=== PATIENT | female | born 1995 | race Two or more races ===

== ENCOUNTER 2021-06-20 21:16 | Emergency (ER) | payer MEDICAID ==
[~2021-06-20] VITALS: Ht 175.3 cm; Wt 156.6 kg
[2021-06-20 21:23] VITALS: BP 118/85
[2021-06-20 21:59] LABS: BASOPHILS # (AUTO) 0.1 X10'3 (0-0.2); BASOPHILS % (AUTO) 0.9 % (0-1); EOSINOPHILS # (AUTO) 0.2 X10'3 (0-0.9); EOSINOPHILS % (AUTO) 1.7 % (0-6); HEMATOCRIT 41.6 % (35.0-45.0); HEMOGLOBIN 13.6 g/dl (12.0-16.0); LYMPHOCYTES # (AUTO) 1.8 X10'3 (1.1-4.8); LYMPHOCYTES % (AUTO) 19.6 % (21-51); MEAN CORPUSCULAR HEMOGLOBIN 26.1 PG (27.0-31.0); MEAN CORPUSCULAR HGB CONC 32.7 g/dL (33.0-36.5); MEAN CORPUSCULAR VOLUME 79.8 FL (78-98); MEAN PLATELET VOLUME 9.6 FL (7.4-10.4); MONOCYTES # (AUTO) 0.6 X10'3 (0-0.9); MONOCYTES % (AUTO) 6.7 % (2-12); NEUTROPHILS # (AUTO) 6.5 X10'3 (1.8-7.7); NEUTROPHILS % (AUTO) 71.1 % (42-75); PLATELET COUNT 286 X10'3 (140-440); RED BLOOD COUNT 5.22 X10'6 (4.20-5.60); RED CELL DISTRIBUTION WIDTH 13.7 % (11.5-14.5); WHITE BLOOD COUNT 9.1 X10'3 (4.5-11.0)
[2021-06-20 22:18] LABS: ALANINE AMINOTRANSFERASE 61 U/L (12-78); ALBUMIN 3.6 G/DL (3.4-5.0); ALKALINE PHOSPHATASE 69 IU/L (46-116); ANION GAP 8 (8-16); ASPARTATE AMINO TRANSFERASE 27 U/L (10-37); BILIRUBIN,TOTAL 0.2 MG/DL (0.1-1.0); BLOOD UREA NITROGEN 8 MG/DL (7-18); BUN/CREATININE RATIO 11.1 (6.6-38.0); CHLORIDE 105 MMOL/L (99-107); CREATININE 0.72 MG/DL (0.40-0.90); GLUCOSE 102 MG/DL (70-104); LIPASE < 50 U/L (73-393); POTASSIUM 4.2 MMOL/L (3.5-5.1); SODIUM 142 MMOL/L (135-145); TOTAL CARBON DIOXIDE 28.6 MMOL/L (24-32); TOTAL PROTEIN 7.3 G/DL (6.4-8.2); eGFR > 90 ML/MIN
[2021-06-20 22:24] LABS: URINE HCG NEGATIVE (NEG)
[2021-06-20 22:28] LABS: CLARITY,URINE CLEAR (Clear); COLOR,URINE YELLOW (Yellow); GLUCOSE, URINE NEGATIVE (Neg); KETONES,URINE NEGATIVE (Neg); LEUKOCYTE ESTERASE ,URINE NEGATIVE (Neg); NITRITES, URINE NEGATIVE (Neg); OCCULT BLOOD,URINE NEGATIVE (Neg); PROTEIN,URINE NEGATIVE (Neg); UROBILINOGEN,URINE 0.2 E.U/dL (0.2-1.0)
[2021-06-20 22:31] LABS: UA COLLECTION TYPE CLN CATCH MIDSTREAM
== END 2021-06-21 01:25 | disposition left against medical advice (07) ==
LOC: ER 21:17
DX: R10.9 Unspecified abdominal pain (principal); Z53.21 Procedure and treatment not carried out due to patient leaving prior to being seen by health care provider
CPT/HCPCS: 36415; 80053; 81003; 81025; 83690; 85025

== ENCOUNTER 2021-06-25 19:30 | Emergency (ER) | payer MEDICAID ==
[~2021-06-25] VITALS: Ht 175.3 cm; Wt 154.6 kg
[2021-06-25 19:32] VITALS: BP 129/96
[2021-06-25 20:29] LABS: CLARITY,URINE CLEAR (Clear); COLOR,URINE YELLOW (Yellow); GLUCOSE, URINE NEGATIVE (Neg); KETONES,URINE 15 mg/dl (Neg); LEUKOCYTE ESTERASE ,URINE NEGATIVE (Neg); NITRITES, URINE NEGATIVE (Neg); OCCULT BLOOD,URINE NEGATIVE (Neg); PH,URINE 7.5 (4.8-8.0); PROTEIN,URINE NEGATIVE (Neg); UA COLLECTION TYPE STRAIGHT CATH; URINE HCG NEGATIVE (NEG); UROBILINOGEN,URINE 0.2 E.U/dL (0.2-1.0)
[2021-06-25] MEDS ORDERED: ketorolac trometh. 30mg/ml inj. IM ONE (20:50)
[2021-06-25] MEDS ORDERED: IBUP-1985 PO (20:58)
== END 2021-06-25 21:05 | disposition home or self-care (01) ==
LOC: ER 19:31
DX: M54.89 Other dorsalgia (principal); Z79.899 Other long term (current) drug therapy
CPT/HCPCS: 81003; 81025; 96372; 99283; J1885

== ENCOUNTER 2021-06-26 03:30 | Emergency (ER) | payer MEDICAID ==
[~2021-06-26] VITALS: Ht 175.3 cm; Wt 154.6 kg
[~2021-06-26 03:30] MED LIST: IBUP-1985 PO
[2021-06-26 03:40] VITALS: BP 136/81
== END 2021-06-26 04:03 | disposition left against medical advice (07) ==
LOC: ER 03:30
DX: M54.9 Dorsalgia, unspecified (principal); Z53.21 Procedure and treatment not carried out due to patient leaving prior to being seen by health care provider

== ENCOUNTER 2021-09-08 07:29 | Day surgery (SDC) | payer MEDICAID ==
[2021-09-06 10:06] LABS: BASOPHILS # (AUTO) 0.1 X10'3 (0-0.2); BASOPHILS % (AUTO) 1.1 % (0-1); EOSINOPHILS # (AUTO) 0.2 X10'3 (0-0.9); EOSINOPHILS % (AUTO) 2.5 % (0-6); LYMPHOCYTES # (AUTO) 1.8 X10'3 (1.1-4.8); LYMPHOCYTES % (AUTO) 21.9 % (21-51); MEAN CORPUSCULAR HEMOGLOBIN 26.2 PG (27.0-31.0); MEAN CORPUSCULAR HGB CONC 33.2 g/dL (33.0-36.5); MEAN CORPUSCULAR VOLUME 78.9 FL (78-98); MEAN PLATELET VOLUME 10.1 FL (7.4-10.4); MONOCYTES # (AUTO) 0.5 X10'3 (0-0.9); MONOCYTES % (AUTO) 6.1 % (2-12); NEUTROPHILS # (AUTO) 5.6 X10'3 (1.8-7.7); NEUTROPHILS % (AUTO) 68.4 % (42-75); PRE OP HEMATOCRIT 39.4 % (35.0-45.0); PRE OP HEMOGLOBIN 13.1 g/dL (12.0-16.0); PRE OP PLATELET COUNT 255 X10'3 (140-440); RED BLOOD COUNT 4.99 X10'6 (4.20-5.60); RED CELL DISTRIBUTION WIDTH 13.8 % (11.5-14.5)
[2021-09-06 10:18] LABS: ALBUMIN 3.4 G/DL (3.4-5.0); ALBUMIN/GLOBULIN RATIO 0.7 (1.1-1.5); ALKALINE PHOSPHATASE 57 IU/L (46-116); BLOOD UREA NITROGEN 12 MG/DL (7-18); BUN/CREATININE RATIO 18.2 (6.6-38.0); CALCIUM 8.7 MG/DL (8.5-10.1); CHLORIDE 105 MMOL/L (99-107); CREATININE 0.66 MG/DL (0.40-0.90); PRE OP ALT 45 U/L (30-65); PRE OP ANION GAP 12 (8-16); PRE OP AST 21 U/L (10-37); PRE OP BILIRUB, TOTAL 0.4 MG/DL (0.0-1.0); PRE OP GLUCOSE 107 MG/DL (70-104); PRE OP POTASSIUM 3.8 MMOL/L (3.4-5.1); PRE OP SODIUM 139 MMOL/L (135-145); TOTAL CARBON DIOXIDE 21.9 MMOL/L (24-32); TOTAL PROTEIN 8.3 G/DL (6.4-8.2); eGFR > 90 ML/MIN
[2021-09-06 10:29] LABS: HCG SERUM QL NEGATIVE
[~2021-09-08] VITALS: Ht 177.8 cm; Wt 146.6 kg
[2021-09-08] VITALS (8 sets, daily range): BP systolic 125–138; BP diastolic 72–87
[~2021-09-08 07:29] MED LIST changes: -IBUP-1985 PO; +INDOCYANINE GREEN 25 MG/10 ML VIAL IV ONE; +LEVO1TAB80 PO; +ceFAZolin inj. 3,000 MG in normal saline 100ml IV soln 100 ML IV ONE; +famotidine 20mg tablet PO ONE; +ringers solution, lacted 1,000 ML IV SCH
[2021-09-08] MEDS ORDERED: proCHLORperazine 10 MG/2 ml inj IV PRN (08:00)
[2021-09-08] MEDS ORDERED: morphine 2 MG/ML inj. syringe IV PRN (08:00)
[2021-09-08] MEDS ORDERED: ringers solution, lacted 1,000 ML IV SCH (08:00)
[2021-09-08] MEDS ORDERED: morphine 4 MG/ML inj SYRINge IV PRN (08:00)
[2021-09-08] MEDS ORDERED: meperidine/PF 25mg/ml syringe IV PRN ×3 (08:00)
[2021-09-08] MEDS ORDERED: ondansetron/PF 4mg/2ml inj IV PRN (08:00)
[2021-09-08] MEDS ORDERED: fentaNYL/PF 50MCG/1 ML 2ML syringe ONE (08:41)
[2021-09-08] MEDS ORDERED: midazolam 1 mg/ML 2ml injection ONE (08:42)
[2021-09-08] MEDS ORDERED: propofol inj 20 ML IV ONE (08:43)
[2021-09-08] MEDS ORDERED: LIDOcaine 2% (20mg/ml) 5ml vial ONE (08:43)
[2021-09-08] MEDS ORDERED: BUPIVAcaine/PF 7.5mg/ml (0.75%) 10ml vial ONE (08:55)
[2021-09-08] MEDS ORDERED: LIDOcaine 1% 30ml preserv. free vial ONE (08:55)
[2021-09-08] MEDS ORDERED: glycopyrrolate 0.2mg/ml inj ONE (08:57)
[2021-09-08] MEDS ORDERED: ondansetron/PF 4mg/2ml inj ONE (08:57)
[2021-09-08] MEDS ORDERED: neostigmine methylsulfate 1 MG/ML 10ml vial ONE (08:57)
[2021-09-08] MEDS ORDERED: desflurane 240ml liquid inh. IH ONE (08:57)
[2021-09-08] MEDS ORDERED: sevoflurane 250ml liquid IH ONE (08:57)
[2021-09-08] MEDS ORDERED: dexamethasone sod phosphate 4mg/ml inj. ONE (09:17)
[2021-09-08] MEDS ORDERED: rocuronium 10mg/ml inj IV ONE (09:17)
[2021-09-08] MEDS ORDERED: morphine 4 MG/ML inj SYRINge ONE (09:42)
[2021-09-08] MEDS ORDERED: ketorolac trometh. 30mg/ml inj. ONE (09:54)
[2021-09-08] MEDS ORDERED: sugammadex 200mg/2ml injection IV ONE (09:56)
[2021-09-08] MEDS ORDERED: HYDROcodone/acetaminophen 5mg/325mg tablet PO PRN (10:15)
--- NOTE | 2021-09-08 11:12 | NUR ---
ALL DISCHARGE CRITERIA HAS BEEN MET. VSS, PAIN AT A TOLERABLE LEVEL, ABLE TO SAFELY AMBULATE AND TRANSFER SELF. IV TAKEN OUT WITHOUT ANY COMPLICATIONS. ALL DISCHARGE INSTRUCTIONS COVERED WITH PATIENT AND ALL QUESTIONS ANSWERED. PATIENT TAKEN OUT VIA WHEELCHAIR TO PERSONAL VEHICLE WHERE FAMILY/FRIEND DROVE PATIENT HOME. DISCHARGE INSTRUCTION ALSO GIVEN TO SPOUSE AND NO QUESTIONS FOLLOWED Addendum: 09/08/21 at 1131 by Warner Voss RN Amended: Links added.
== END 2021-09-08 11:12 | disposition home or self-care (01) ==
LOC: PAS 07:29
PROVIDERS: ATTEND Surgery
DX: K81.1 Chronic cholecystitis (principal); E66.9 Obesity, unspecified; Z68.42 Body mass index [BMI] 45.0-49.9, adult; Z98.890 Other specified postprocedural states; F17.290 Nicotine dependence, other tobacco product, uncomplicated; Z86.14 Personal history of Methicillin resistant Staphylococcus aureus infection; Z79.899 Other long term (current) drug therapy; Z82.49 Family history of ischemic heart disease and other diseases of the circulatory system
CPT/HCPCS: 36415; 47563; 80053; 82948; 84703; 85025; J0690; J1100; J1885; J2175; J2250; J2270; J2405; J2704; J2710; J3010; J3490; J7030; J7120; S2900; Z7506; Z7508; Z7512; A4215; A4618; A7000